=== PATIENT | male | born 2000 | race Two or more races ===

== ENCOUNTER 2023-03-14 10:14 | Outpatient (CLI) | payer OTHER | END 2023-03-14 10:24 | disposition home or self-care (01) | LOC: RAD 10:14 | PROVIDERS: ATTEND Physical Medicine & Rehabilitation | DX: M25.512 Pain in left shoulder (principal); M25.572 Pain in left ankle and joints of left foot ==

== ENCOUNTER 2023-09-30 05:25 | Emergency (ER) | payer OTHER ==
[~2023-09-30] VITALS: Ht 167.6 cm; Wt 68.9 kg
== END 2023-09-30 11:34 | disposition home or self-care (01) ==
LOC: ER 05:25
DX: F10.129 Alcohol abuse with intoxication, unspecified (principal)

== ENCOUNTER 2025-05-11 09:06 | Outpatient (CLI) | payer OTHER | END 2025-05-11 09:07 | disposition home or self-care (01) | LOC: TOM 09:06 | PROVIDERS: ATTEND Internal Medicine Pulmonary Disease | DX: R91.8 Other nonspecific abnormal finding of lung field (principal) ==

== ENCOUNTER 2025-08-24 11:51 | Outpatient (CLI) | payer OTHER | END 2025-08-24 11:57 | disposition home or self-care (01) | LOC: RAD 11:51 | DX: S53.402A Unspecified sprain of left elbow, initial encounter (principal) ==